=== PATIENT | male | born 2000 | race Caucasian/White ===

== ENCOUNTER 2024-03-26 15:06 | Emergency (ER) | payer OTHER ==
[2024-03-26 16:27] VITALS: TEMP 97.6; O2SAT 99
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
[2024-03-26] MEDS ORDERED: Adacel Vial IM ONE (17:26)
[2024-03-26] MEDS: Adacel Vial IM ONE (17:28)
[2024-03-26 18:14] VITALS: BP 94/60; PULSE 83; RESP 16
== END 2024-03-26 18:28 | disposition home or self-care (01) ==
LOC: ED 15:06
DX: S01.81XA Laceration without foreign body of other part of head, initial encounter (principal); W20.8XXA Other cause of strike by thrown, projected or falling object, initial encounter; Z23 Encounter for immunization
CPT/HCPCS: 12011; 90471; 90715; 99281; 99283